=== PATIENT | female | born 1965 | race Caucasian/White ===

== ENCOUNTER 2017-06-13 07:18 | Emergency (ER) | payer OTHER ==
[~2017-06-13] VITALS: Ht 157.5 cm; Wt 126.1 kg
[~2017-06-13 07:18] MED LIST: ACT30 PO; BACLOFEN20 MG PO; CLINDAMYCIN HC300 MG PO; COL100 PO; ECOTRIN81 MG PO; GLIPIZIDE5 MG PO; LAC PO; MELOXICAM15 M1 PO; METFORMIN HCL1000 MG PO; MOTRIN600 MG PO; MOTRIN800 MG PO; NEURONTIN600 MG PO; NEURONTIN800 MG PO; PERCOCET1 TA2 PO; PRAVACHOL40 MG PO; PRINIVIL10 MG PO; TRAMADOL HCL50 MG PO; VALIUM5 MG PO; ZESTRIL20 MG PO
[2017-06-13 07:24] VITALS: BP 149/97
== END 2017-06-13 07:50 | disposition home or self-care (01) ==
LOC: ED 07:18
DX: J03.90 Acute tonsillitis, unspecified (principal); E11.9 Type 2 diabetes mellitus without complications; I10 Essential (primary) hypertension; E78.00 Pure hypercholesterolemia, unspecified; E66.01 Morbid (severe) obesity due to excess calories